=== PATIENT | female | born 1970 | race Caucasian/White ===

== ENCOUNTER → 2017-05-06 | Outpatient (CLI) | payer OTHER ==
--- NOTE | 2017-05-06 13:18 | XR ---
EXAMINATION TYPE: XR chest 2V DATE OF EXAM: 05/06/2017 HISTORY: R05 Cough. REFERENCE: NONE. FINDINGS: Lung volumes are prominent. The lungs are clear. Pleural spaces are clear. Heart size is no rmal. IMPRESSION: NO ACUTE INTRATHORACIC ABNORMALITY.
== END | disposition home or self-care (01) ==
LOC: RADXRMAIN 12:23
PROVIDERS: ATTEND Internal Medicine
DX: R05 Cough (principal)
CPT/HCPCS: 71020

== ENCOUNTER → 2018-09-12 | Outpatient (CLI) | payer OTHER ==
--- NOTE | 2018-09-12 13:39 | US ---
EXAMINATION TYPE: US kidneys/renal and bladder DATE OF EXAM: 09/12/2018 COMPARISON: NONE CLINICAL HISTORY: R31.9 Hematuria. EXAM MEASUREMENTS: Right Kidney: 10.5 x 4.5 x 4.7 cm Left Kidney: 10.4 x 4.9 x 4.6 cm Right Kidney: No hydronephrosis or masses seen Left Kidney: No hydronephrosis or masses seen Bladder: wnl Possible left exophytic uterine fibroid noted. IMPRESSION: No acute renal abnormality.
== END | disposition home or self-care (01) ==
LOC: RADUSWWP 11:59
PROVIDERS: ATTEND Internal Medicine
DX: R31.9 Hematuria, unspecified (principal)
CPT/HCPCS: 76770

== ENCOUNTER → 2020-06-17 | Outpatient (CLI) | payer BC ==
--- NOTE | 2020-06-17 20:40 | XR ---
EXAMINATION TYPE: XR chest 2V DATE OF EXAM: 06/17/2020 CLINICAL HISTORY: Cough for 1 month TECHNIQUE: Frontal and lateral views of the chest are obtained. COMPARISON: 05/07/2017 chest x-ray FINDINGS: The cardiomediastinal silhouette is within normal limits for size. Pulmonary vasculature i s normal. There is no focal air space opacity, pleural effusion, or pneumothorax seen. The osseous st ructures are intact. IMPRESSION: No acute cardiopulmonary process.
== END | disposition home or self-care (01) ==
LOC: RADXRMAIN 12:44
PROVIDERS: ATTEND Internal Medicine
DX: R05 Cough (principal)
CPT/HCPCS: 71046

== ENCOUNTER → 2020-09-27 | Outpatient (CLI) | payer BC ==
--- NOTE | 2020-09-27 15:23 | US ---
EXAMINATION TYPE: US thyroid st tissue head/neck DATE OF EXAM: 09/27/2020 COMPARISON: NONE CLINICAL HISTORY: R13.10 DIFFICULTY SWALLOWING. GLAND SIZE: Right Lobe: 3.6 x 1.0 x 1.0 cm Overall Parenchyma: homogenous Left Lobe: 3.9 x 1.0 x 0.9 cm Overall Parenchyma: homogeneous Isthmus Thickness: 0.3m NODULES RIGHT: # of nodules measured on right: 0 LEFT: # of nodules measured on left: 0 ISTHMUS: # of nodules measured in the isthmus: 0 Bilateral neck scanned, no evidence of lymphadenopathy. IMPRESSION: 1. Normal thyroid ultrasound
== END | disposition home or self-care (01) ==
LOC: RADUSWWP 14:24
PROVIDERS: ATTEND Internal Medicine
DX: R13.10 Dysphagia, unspecified (principal)
CPT/HCPCS: 76536

== ENCOUNTER → 2020-11-02 | Outpatient (CLI) | payer BC ==
--- NOTE | 2020-11-02 10:36 | US ---
EXAMINATION TYPE: US abdomen complete DATE OF EXAM: 11/02/2020 COMPARISON: NONE CLINICAL HISTORY: R10.84 ABD PAIN. generalized abdomen pain EXAM MEASUREMENTS: Liver Length: 14.4 cm Gallbladder Wall: 0.2 cm CBD: 0.2 cm Spleen: 8.4 cm Right Kidney: 10.4 x 4.8 x 4.2 cm Left Kidney: 10.1 x 4.7 x 5.6 cm Pancreas: wnl Liver: right lobe cystic lesion - 1.8 x 1.8 x 1.8 cm Gallbladder: Multiple mobile echogenic foci Evidence for sonographic Jacobo's sign: neg CBD: wnl Spleen: wnl Right Kidney: No hydronephrosis or masses seen Left Kidney: No hydronephrosis or masses seen Upper IVC: wnl Abd Aorta: No AAA visualized The liver is homogenous. The intrahepatic portion of the IVC and proximal abdominal aorta are within normal limits. Common bile duct is unremarkable. The visualized portions of the pancreas are homog enous. The spleen is unremarkable. Kidneys are symmetric and free of hydronephrosis. No renal lesi ons are seen. IMPRESSION: Uncomplicated cholelithiasis.
== END | disposition home or self-care (01) ==
LOC: RADUSWWP 09:48
PROVIDERS: ATTEND Internal Medicine
DX: K80.20 Calculus of gallbladder without cholecystitis without obstruction (principal)
CPT/HCPCS: 76700

== ENCOUNTER → 2021-09-01 | Outpatient (CLI) | payer BC ==
[2021-09-01 20:56] LABS: T4, Free (Free Thyroxine) 1.03 ng/dL (0.800-1.800)
[2021-09-02 01:19] LABS: Anti-Smith Ab Interp NEGATIVE (NEGATIVE)
== END ==
LOC: LABWHC1 09:59
PROVIDERS: ATTEND Psychiatry & Neurology Neurology
DX: M25.50 Pain in unspecified joint (principal); M79.10 Myalgia, unspecified site; R20.0 Anesthesia of skin; R51.9 Headache, unspecified; R53.83 Other fatigue
CPT/HCPCS: 36415; 82306; 82607; 84439; 84443; 85652; 86038; 86235

== ENCOUNTER → 2022-02-07 | Outpatient (CLI) | payer OTHER ==
--- NOTE | 2022-02-07 09:52 | MR ---
EXAMINATION TYPE: MR brain wo/w con DATE OF EXAM: 02/07/2022 COMPARISON: None HISTORY: Migraines, ringing in ear, memory loss TECHNIQUE: Multiplanar, multisequence images of the brain and brainstem is performed without and with IV contras t, utilizing 7 mL intravenous Gadavist . FINDINGS: Diffusion weighted images demonstrate no evidence of a recent infarct or other diffusion ab normality. There is no extra-axial fluid collection or significant white matter signal abnormality, nonspecific focus of hyperintensity within the left parietal region axial image 21 seen on inversion recovery T2-weighted sequences measures only 4 mm. The ventricular system and cisternal spaces are n ormal in size and appearance. The brain volume is age appropriate. Midline structures demonstrate normal morphology. The craniocervical junction appears within normal limits. Post contrast images demonstrate no abnormal enhancement. The dural venous sinuses appear pa tent. The visualized sinuses are clear and the globes are intact. IMPRESSION: Nonspecific focus of hyperintensity, demyelination in the subcortical white matter, quest ionable clinical significance
--- NOTE | 2022-02-07 18:34 | MR ---
EXAMINATION TYPE: MR angio head wo con DATE OF EXAM: 02/07/2022 COMPARISON: None HISTORY: 52 year-old female Migraines, ringing in ear, memory loss TECHNIQUE: High-resolution 3-D [id number] imaging of the [place] without contrast. Rotat ional 3-D reconstructions generated on a dedicated independent workstation. FINDINGS: The vertebral and basilar arteries are patent. There is persistent origin to the right posterior cerebral artery. Remainder of the posterior circulation is patent. A left posterior communicating artery is visualized . The internal carotid arteries or remainder of the anterior circulation is patent. No aneurysmal change is seen. IMPRESSION: No hemodynamically significant stenosis, arterial occlusion, or aneurysmal change is identified in th e [place].
== END | disposition home or self-care (01) ==
LOC: RADMRIMAIN 08:22
PROVIDERS: ATTEND Internal Medicine
DX: R51.9 Headache, unspecified (principal); H93.19 Tinnitus, unspecified ear
CPT/HCPCS: 70544; 70553; A9585

== ENCOUNTER → 2022-07-19 | Outpatient (CLI) | payer OTHER ==
[2022-07-19 14:49] LABS: HCT 42.6 % (37.2-46.3); MCH 33.1 pg (27.0-32.0); MCHC 32.9 g/dL (32.0-37.0); MCV 100.7 fL (80.0-97.0); Mean Platelet Volume 10.4 fL (9.5-12.2); NRBC Per 100 WBC 0 /100 WBCS (0.0-0.0); Platelet Count 303 X 10*3/uL (140-440); RBC 4.23 X 10*6/uL (4.10-5.20); RDW 12.6 % (11.5-14.5); WBC 6.07 X 10*3/uL (4.50-10.00)
[2022-07-19 15:36] LABS: ALT 12 U/L (8-44); AST 15 U/L (13-35); African American GFR (CKD) 88.6 (60.0-200.0); Albumin 4.6 g/dL (3.8-4.9); Albumin/Globulin Ratio 1.78 (1.60-3.17); Alkaline Phosphatase 63 U/L (41-126); BUN/Creat Ratio 12.54 Ratio (12.00-20.00); Blood Urea Nitrogen 10.8 mg/dL (9.0-27.0); Calcium 10.1 mg/dL (8.7-10.3); Carbon Dioxide 26.5 mmol/L (20.0-27.5); Chloride 100 mmol/L (96-109); Chol/HDL Ratio 2.44 Ratio; Globulin 2.6 g/dL (1.6-3.3); Glucose 87 mg/dL (70-110); LDL Cholesterol,Calculated 133.6 mg/dL (0.0-131.0); Non-African American GFR(CKD) 76.5 (60.0-200.0); Potassium 5.2 mmol/L (3.5-5.5); Sodium 138 mmol/L (135-145); Total Protein 7.2 g/dL (6.2-8.2)
== END | disposition home or self-care (01) ==
LOC: LABWHC1 08:40
PROVIDERS: ATTEND Internal Medicine
DX: R53.83 Other fatigue (principal); E78.2 Mixed hyperlipidemia
CPT/HCPCS: 36415; 80053; 80061; 84443; 85027